=== PATIENT | female | born 1980 | race Caucasian/White ===

== ENCOUNTER 2016-11-13 19:15 | Emergency (ER) | payer MEDICAID ==
[2016-11-13] MEDS ORDERED: NS 1,000 ML IV ONE (19:56)
[2016-11-13 20:23] LABS: ALL NEG? NO
--- NOTE | 2016-11-13 20:26 | EDPRACDOC ---
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 PT IS UNABLE TO GIVE ANY HX. THE PT WAS INITIALLY SENT OUT TO TRIAGE DUE TO NO OPEN ED BEDS. UNFORTUNATELY, SHE PASSED OUT ON THE GROUND WHILE WAITING. Reason for Seeking Treatment: 911 Call Drinking Timeframe: Reports: Days - Alcohol Withdrawal Screening Other Psychiatric Conditions: Positive: Depression (NO TREATMENT) ED Past Medical History - Patient Medical History Cardiac History: Reports: Hypertension Respiratory History: Reports: COPD Psychological History: Reports: Depression (NO TREATMENT) Additional Past Medical History: CHRONIC BACK PAIN Surgical History: Reports: Other ( x 1) - Social Medical History Smoking Status: Heavy tobacco smoker (5 or more cigarettes/day or daily pipe/ cigar) ETOH: Abuse Substance Abuse: None Lives In: Home EDM Review of Systems - Review of Systems ROS Unobtainable: Yes Review of systems cannot be obtained due to the patient's medical condition - Physical Exam Constitutional: ETOH Oriented to: Not Oriented Last recorded Vital Signs: Oxygen Pulse Oxygen Saturation O2 Device Oxygen Flow Rate Fraction of Inspired Oxygen ( FIO2) - HEENT Head: Normal ( normocephalic) Eye Exam: Normal (PERRL, EOMI, Sclera white) Oropharynx: Normal (Pharynx:Moist without exudate,Gums-no swelling) ENT EAC: Normal TMJ: Normal Nose: No Symptoms Reported (septum midline) Neck: Normal (FROM, trachea at midline) - Respiratory/Cardiovascular Respiratory: Normal - CTA (BBS clear to auscultation without adventitious sounds ) Cardiovascular: Normal (RRR without murmur, gallop or rub) - GI Auscultation: Normal (NABS) Palpation: Normal (Soft,No rebound or guarding, non distended) Tenderness: Non tender Winters's Sign: Negative - Musculoskeletal Back: Normal (Non-Tender) Extremities: Normal (Normal tone, Pulses 2+ No cyanosis or edema, FROM) - Integumentary Skin: Normal, Warm, Dry Lymphatics: Normal (no adenopathy) - Neurologic Memory Impaired: Unable to Test Motor Function: Unable to Test Cranial Nerve: Unable to Test Cerebellar: Unable to Test - Results Result Diagrams: 11/13/16 20:25 11/13/16 20:25 - EKG EKG #1 EKG Time: 20:00 -: Yes EKG interpreted by me Rate: bpm: 108 [place]: Normal Rhythm: ST Block: None Hypertrophy: None ST: Normal - Diagnostic Imaging Chest Image interpreted by: Radiologist No acute cardiopulmonary process seen. - Additional Information Additional Information: PT IS NOW AWAKE AND ALERT. I ASKED HER IF SHE WANTED DETOX. SHE NO LONGER DOES. SHE JUST WANTS TO GO HOME AND "SLEEP IT OFF." PT ENCOURAGED TO RETURN IF SHE CHANGES HER MIND. Decision Time to Discharge: 22:11 - Departure Yes I personally saw and evaluated the patient. Disposition: Home Condition: Fair Final Diagnosis: Alcohol intoxication Instructions: Alcohol Intoxication (ED) Education/Counseling Given To: Patient Education/Counseling Given Regarding: Diagnosis, Treatment, Follow Up Referrals: Alex Palomo MD [Primary Care Provider] - One Week
[2016-11-13 20:33] LABS: LEUKOCYTES/URINE TRACE (NEGATIVE); NITRITE/URINE NEG (NEGATIVE); RBC/URINE 0-2 (0-5); URINE OCCULT BLOOD 3+ (NEG/TRACE)
[2016-11-13 20:35] LABS: MDMA* NEG (NEGATIVE); METHAMPHETAMINES NEG (NEGATIVE); OXYCODONE NEG (NEGATIVE)
[2016-11-13 20:46] LABS: AUTOMATED BASOPHIL 1.3 % (0-2); AUTOMATED EOSINOPHIL 0.4 % (0-5); AUTOMATED LYMPH 40.6 % (17-44); AUTOMATED MONOCYTE 3.6 % (3-10); AUTOMATED NEUTROPHIL 54.1 % (45-76); MPV 8.2 fL (7.4-10.4)
[2016-11-13 21:00] LABS: BLOOD UREA NITROGEN 9 MG/DL (7-17); CALCIUM 8.5 MG/DL (8.4-10.2); CALCULATED OSMOLALITY 282 MOs/Kg (270-290); CHLORIDE 104 mEq/L (98-107); GLUCOSE 88 MG/DL (70-99); SODIUM LEVEL 148 mEq/L (137-146); TOTAL PROTEIN 7.3 G/DL (6.3-8.2)
--- NOTE | 2016-11-13 21:16 | DIRPT ---
CLINICAL DATA: Acute onset of cough. Syncope. Initial encounter. EXAM: PORTABLE CHEST 1 VIEW COMPARISON: Chest radiograph performed 05/03/2016 FINDINGS: The lungs are well-aerated and clear. There is no evidence of focal opacification, pleural effusion or pneumothorax. The cardiomediastinal silhouette is within normal limits. No acute osseous abnormalities are seen. IMPRESSION: No acute cardiopulmonary process seen. Electronically Signed By: Domenico Yuen M.D. On: 11/13/2016 21:14
--- NOTE | 2016-11-13 21:24 | DIRPT ---
CLINICAL DATA: Fall. Syncopal episode. Binge drinking for past 3 days. EXAM: CT HEAD WITHOUT CONTRAST CT CERVICAL SPINE WITHOUT CONTRAST TECHNIQUE: Multidetector CT imaging of the head and cervical spine was performed following the standard protocol without intravenous contrast. Multiplanar CT image reconstructions of the cervical spine were also generated. COMPARISON: None. FINDINGS: CT HEAD FINDINGS No evidence of intracranial hemorrhage, brain edema, or other signs of acute infarction. No evidence of intracranial mass lesion or mass effect. No abnormal extraaxial fluid collections identified. Ventricles are normal in size. No skull abnormality identified. Mucosal thickening is seen involving the ethmoid and maxillary sinuses bilaterally, consistent with chronic sinusitis. CT CERVICAL SPINE FINDINGS No evidence of acute fracture, subluxation, or prevertebral soft tissue swelling. Intervertebral disc spaces are maintained. No evidence of facet DJD. No other significant bone abnormality identified. IMPRESSION: No evidence of intracranial abnormality. Chronic sinusitis noted. No evidence of cervical spine fracture or subluxation. Electronically Signed By: Eric Kruger M.D. On: 11/13/2016 21:21
[2016-11-13 21:55] VITALS: BP 133/87; PULSE 100; TEMP 98.3; BMI 42.9
== END 2016-11-13 22:40 | disposition home or self-care (01) ==
LOC: ED 19:15
DX: F10.129 Alcohol abuse with intoxication, unspecified (principal)
CPT/HCPCS: 36415; 70450; 71010; 72125; 80053; 80307; 81001; 81025; 82962; 85025; 93005; 96360; 96361; 99282

== ENCOUNTER 2016-11-14 11:08 | Inpatient (IN) | payer MEDICAID ==
[2016-11-14] MEDS ORDERED: NS 1,000 ML IV ONE (11:45)
[2016-11-14] MEDS ORDERED: SODIUM CHLORIDE 0.9% 10 ML FLUSH FLUSH PRN (11:45)
[2016-11-14] MEDS ORDERED: ONDANSETRON HCL 4 MG/2 ML VIAL IV ONE (11:45)
[2016-11-14] MEDS ORDERED: LORAZEPAM 2 MG/ML VIAL IV ONE ×2 (11:51→12:20)
[2016-11-14 11:52] LABS: ALL NEG? NO
--- NOTE | 2016-11-14 11:57 | EDPRACDOC ---
ED Alcohol/Substance Withdrawl - General Information Information Source: Patient Mode of Arrival: Car - History of Present Illness Onset: today HPI: Pt states she drank a fifth of liquor 2 days ago and now has abd pain, n/v/d, chest pain, cough. Pt states she needs help with the symptoms but doesn't want detox. Denies SI, HI, hallucination. Pt states tntc vomiting, dry heaves, diarrhea in 12 hours. Stopped/Reduced Use For: Days Altered Mental Status For: Reports: None Relevant History: Reports: Alcoholism Current Substance of Use: Reports: Alcohol Circumstances: Reports: Withdrawal Symptoms Severity: Moderate Associated Signs & Symptoms: Reports: Abdominal Pain, Nausea, Vomiting, Diarrhea <Laura Wilson - Last Filed: 11/14/16 12:54> - History of Present Illness HPI: MD NOTE SEEN AND EXAMINED; SEE RECORDS FROM YESTERDAY. PT CAME HERE SHAKING, TACHYCARDIC, AND SWEATING. ALSO PERSISTENT VOMITING. DOES WANT DETOX. WILL CONTACT HOSPITALIST <Michael Lemon - Last Filed: 11/14/16 13:11> - General Information Chief Complaint: Alcohol Withdrawal Stated Complaint: DETOX SHAKING ABD & CP PAIN Time Seen by Provider: 11/14/16 11:43 Home Medications: Home Medications Albuterol Sulfate Nebs [Proventil, Ventolin] 3 ml NEB Q4-6H PRN 11/13/16 Allergies/Adverse Reactions: Allergies Allergy/AdvReac Type Severity Reaction Status Date / Time No Known Allergies Allergy Verified 11/14/16 11:16 ED Past Medical History - History Reviewed Yes Nurses notes reviewed and agree except as marked - Patient Medical History Cardiac History: Reports: Hypertension Respiratory History: Reports: COPD Psychological History: Reports: Depression Systemic History: Denies: Cancer Additional Past Medical History: CHRONIC BACK PAIN Surgical History: Reports: Other ( x 1). Denies: Hysterectomy - Social Medical History Smoking Status: Heavy tobacco smoker (5 or more cigarettes/day or daily pipe/ cigar) Social History: Reports: Marijuana Use ETOH: Abuse Substance Abuse: Illicit Drugs <Laura Wilson - Last Filed: 11/14/16 12:54> EDM Review of Systems - Review of Systems Constitutional: No Symptoms Reported. negative: Fever, Chills, Weakness, Fatigue, Loss of Appetite Ears: No Symptoms Reported. negative: Pain, Hearing Loss, Drainage, Ear Pulling Throat: No Symptoms Reported. negative: Pain, Swelling Nose: No Symptoms Reported. negative: Congestion, Bleeding, Discharge, Injection, Swelling, Deformity, Ecchymosis, Tender, Abrasion, Laceration Mouth: No Symptoms Reported. negative: Pain, Drooling Respiratory: Cough Cardiovascular: Chest Pain Gastrointestinal: Diarrhea, Nausea, Pain, Vomiting Genitourinary: No Symptoms Reported. negative: Dysuria, Hematuria, Frequency, Discharge, Bleeding, Testicular Pain, Neurological: No Symptoms Reported. negative: Headache, Dizziness, Seizure, Numbness, Weakness, Speech Difficulty, Gait Difficulty Musculoskeletal: No Symptoms Reported. negative: Neck, Chestwall, Ribs, Back, Shoulder, Arm, Elbow, Forearm, Wrist, Hand, Pelvis, Hip, Femur, Knee, Leg, Ankle , Foot Integumentary: No Symptoms Reported. negative: Itching, Rash, Bruising, Wound Allergic/Immunologic: No Symptoms Reported. negative: Hives, Itching Hematologic: No Symptoms Reported. negative: Lymphadenopathy, Easy Bruising, Easy Bleeding Psychiatric: No Symptoms Reported. negative: Anxiety, Depression, Hallucinations, Insomnia, Suicidal <Laura Wilson Malini - Last Filed: 11/14/16 12:54> - Physical Exam Constitutional: Alert Oriented to: Time, Person, Place Last recorded Vital Signs: Last Vital Signs Temp 98.5 F 11/14/16 11:13 Pulse 119 11/14/16 11:30 Resp 22 11/14/16 11:30 BP 121/89 11/14/16 11:30 Pulse Ox 100 11/14/16 11:30 Oxygen Pulse Oxygen Saturation 100 O2 Device Room Air Oxygen Flow Rate Fraction of Inspired Oxygen ( FIO2) - HEENT Head: Normal ( normocephalic) Eye Exam: Normal (PERRL, EOMI, Sclera white) Oropharynx: Membranes Dry Tympanic Membrane: Normal ENT EAC: Normal Nose: No Symptoms Reported (septum midline) Neck: Normal (FROM, trachea at midline) - Respiratory/Cardiovascular Respiratory: Normal - CTA (BBS clear to auscultation without adventitious sounds ) Cardiovascular: Tachycardia - GI Auscultation: Normal (NABS) Palpation: Normal (Soft,No rebound or guarding, non distended) Tenderness: Non tender - Musculoskeletal Back: Normal (Non-Tender) Extremities: Normal (Normal tone, Pulses 2+ No cyanosis or edema, FROM) - Integumentary Skin: Normal, Warm, Dry Lymphatics: Normal (no adenopathy) - Neurologic Memory Impaired: Normal Motor Function: Normal (Normal tone, Pulses 2+ No cyanosis or edema, FROM) Cerebellar: Tremor Mood Description: Normal Perception: Normal <Laura Wilson Malini - Last Filed: 11/14/16 12:54> - Physical Exam Last recorded Vital Signs: Last Vital Signs Temp 98.5 F 11/14/16 11:13 Pulse 107 11/14/16 12:42 Resp 18 11/14/16 12:42 BP 227/105 H 11/14/16 12:42 Pulse Ox 94 11/14/16 12:42 Oxygen Pulse Oxygen Saturation 94 O2 Device Room Air Oxygen Flow Rate Fraction of Inspired Oxygen ( FIO2) <Michael Lemon - Last Filed: 11/14/16 13:11> ED Alcohol/Sub/Withdrawal Exam - Neurologic Oriented to: Time, Person, Place Stimuli Response: Verbal Stimuli Memory Impairment: Normal CN: Normal Motor Function Unable to Test or Normal: Normal Cerebellar Function: Tremor Reflexes: Normal Thought: Coherent Affect: Appropriate Perception: Normal Insight: Normal Judgement: Normal <Diane Wilsonmalini Franklin - Last Filed: 11/14/16 12:54> - Differential Diagnosis Alcohol withdraw syndrome, Electrolyte Imbalance, Intoxication Alcohol, Medically stable - Results 11/14/16 12:15 11/14/16 12:15 11/14/16 12:54 Laboratory Results - last 24 hr 11/14/16 11/14/16 11/14/16 11:40 11:40 12:15 WBC RBC Hgb Hct MCV MCH MCHC RDW Plt Count MPV Neut % (Auto) Lymph % (Auto) [place] % (Auto) Eos % (Auto) Baso % (Auto) Absolute Neuts (auto) Absolute Lymphs (auto) Sodium 145 Potassium 3.3 L Chloride 95 L Carbon Dioxide 25 Anion Gap 28 H BUN 10 Creatinine 0.60 Estimated GFR (MDRD) > 60 Glucose 130 H Calculated Osmolality 280 Calcium 9.3 Total Bilirubin 1.3 AST 33 ALT 51 Alkaline Phosphatase 101 Total Protein 8.2 Albumin 4.8 Urine Color Dark yellow Urine Clarity Sl cldy Urine pH 6.0 Ur Specific [place] 1.025 Urine Protein 3+ H Urine Glucose (UA) Trace Urine Ketones 3+ H Urine Occult Blood 3+ H Urine Nitrite Neg Urine Bilirubin Neg Urine Urobilinogen <2.0 Ur Leukocyte Esterase Neg Urine RBC 5-10 H Urine WBC 5-10 H Ur Epithelial Cells 4+ Urine Bacteria 1+ H Urine Mucus Mod H Urine Opiates Screen Neg Ur Oxycodone Screen Neg Urine Methadone Screen Neg Ur Barbiturates Screen Neg Ur Tricyclics Screen Neg Ur Phencyclidine Scrn Neg Ur Amphetamines Screen Neg U Methamphetamines Scrn Neg Urine MDMA Screen Neg U Benzodiazepines Scrn Neg Urine Cocaine Screen Neg Ur THC Screen *positive* H Plasma/Serum Ethyl Alc 0.01 H 11/14/16 12:15 WBC 14.7 H RBC 5.09 Hgb 17.8 H Hct 52.3 H MCV 103 H MCH 35.0 H MCHC 34.0 RDW 17.0 H Plt Count 336 MPV 8.1 Neut % (Auto) 89.0 H Lymph % (Auto) 7.9 L [place] % (Auto) 2.5 L Eos % (Auto) 0.1 Baso % (Auto) 0.5 Absolute Neuts (auto) 13.08 H Absolute Lymphs (auto) 1.03 Sodium Potassium Chloride Carbon Dioxide Anion Gap BUN Creatinine Estimated GFR (MDRD) Glucose Calculated Osmolality Calcium Total Bilirubin AST ALT Alkaline Phosphatase Total Protein Albumin Urine Color Urine Clarity Urine pH Ur Specific [place] Urine Protein Urine Glucose (UA) Urine Ketones Urine Occult Blood Urine Nitrite Urine Bilirubin Urine Urobilinogen Ur Leukocyte Esterase Urine RBC Urine WBC Ur Epithelial Cells Urine Bacteria Urine Mucus Urine Opiates Screen Ur Oxycodone Screen Urine Methadone Screen Ur Barbiturates Screen Ur Tricyclics Screen Ur Phencyclidine Scrn Ur Amphetamines Screen U Methamphetamines Scrn Urine MDMA Screen U Benzodiazepines Scrn Urine Cocaine Screen Ur THC Screen Plasma/Serum Ethyl Alc - Diagnostic Imaging Chest Image interpreted by: Radiologist IMPRESSION: No active disease. <Laura Wilson E - Last Filed: 11/14/16 12:54> - Results 11/14/16 12:15 11/14/16 12:15 WBC 14.7 xk/uL (3.8-10.8) H 11/14/16 12:15 RBC 5.09 xM/uL (4.20-5.40) 11/14/16 12:15 Hgb 17.8 g/dL (12.0-16.0) H 11/14/16 12:15 Hct 52.3 % (36-47) H 11/14/16 12:15 MCV 103 fL (81-99) H 11/14/16 12:15 MCH 35.0 pg (27-32) H 11/14/16 12:15 MCHC 34.0 g/dl (33-36) 11/14/16 12:15 RDW 17.0 % (11.5-14.5) H 11/14/16 12:15 Plt Count 336 xk/uL (130-400) 11/14/16 12:15 MPV 8.1 fL (7.4-10.4) 11/14/16 12:15 Neut % (Auto) 89.0 % (45-76) H 11/14/16 12:15 Lymph % (Auto) 7.9 % (17-44) L 11/14/16 12:15 [place] % (Auto) 2.5 % (3-10) L 11/14/16 12:15 Eos % (Auto) 0.1 % (0-5) 11/14/16 12:15 Baso % (Auto) 0.5 % (0-2) 11/14/16 12:15 Absolute Neuts (auto) 13.08 xk/uL (1.7-8.2) H 11/14/16 12:15 Absolute Lymphs (auto) 1.03 xk/uL (0.65-4.75) 11/14/16 12:15 Sodium 145 mEq/L (137-146) 11/14/16 12:15 Potassium 3.3 mEq/L (3.5-5.1) L 11/14/16 12:15 Chloride 95 mEq/L (98-107) L 11/14/16 12:15 Carbon Dioxide 25 mMOL/L (22-33) 11/14/16 12:15 Anion Gap 28 mEq/L (8-16) H 11/14/16 12:15 BUN 10 MG/DL (7-17) 11/14/16 12:15 Creatinine 0.60 MG/DL (0.52-1.04) 11/14/16 12:15 Estimated GFR (MDRD) > 60 mL/min (>=60) 11/14/16 12:15 Glucose 130 MG/DL (70-99) H 11/14/16 12:15 Calculated Osmolality 280 MOs/Kg (270-290) 11/14/16 12:15 Calcium 9.3 MG/DL (8.4-10.2) 11/14/16 12:15 Total Bilirubin 1.3 MG/DL (0.2-1.3) 11/14/16 12:15 AST 33 IU/L (14-36) 11/14/16 12:15 ALT 51 IU/L (9-52) 11/14/16 12:15 Alkaline Phosphatase 101 IU/L (38-126) 11/14/16 12:15 Total Protein 8.2 G/DL (6.3-8.2) 11/14/16 12:15 Albumin 4.8 G/DL (3.5-5.0) 11/14/16 12:15 Urine Color Dark yellow 11/14/16 11:40 Urine Clarity Sl cldy 11/14/16 11:40 Urine pH 6.0 (5.0-8.0) 11/14/16 11:40 Ur Specific [place] 1.025 (1.003-1.035) 11/14/16 11:40 Urine Protein 3+ (NEG/TRACE) H 11/14/16 11:40 Urine Glucose (UA) Trace (NEGATIVE) 11/14/16 11:40 Urine Ketones 3+ (NEGATIVE) H 11/14/16 11:40 Urine Occult Blood 3+ (NEG/TRACE) H 11/14/16 11:40 Urine Nitrite Neg (NEGATIVE) 11/14/16 11:40 Urine Bilirubin Neg (NEGATIVE) 11/14/16 11:40 Urine Urobilinogen <2.0 MG/DL (0-1) 11/14/16 11:40 Ur Leukocyte Esterase Neg (NEGATIVE) 11/14/16 11:40 Urine RBC 5-10 (0-5) H 11/14/16 11:40 Urine WBC 5-10 (0-5) H 11/14/16 11:40 Ur Epithelial Cells 4+ 11/14/16 11:40 Urine Bacteria 1+ (NEG/FEW) H 11/14/16 11:40 Urine Mucus Mod (NEG/OCC) H 11/14/16 11:40 Urine Opiates Screen Neg (NEGATIVE) 11/14/16 11:40 Ur Oxycodone Screen Neg (NEGATIVE) 11/14/16 11:40 Urine Methadone Screen Neg (NEGATIVE) 11/14/16 11:40 Ur Barbiturates Screen Neg (NEGATIVE) 11/14/16 11:40 Ur Tricyclics Screen Neg (NEGATIVE) 11/14/16 11:40 Ur Phencyclidine Scrn Neg (NEGATIVE) 11/14/16 11:40 Ur Amphetamines Screen Neg (NEGATIVE) 11/14/16 11:40 U Methamphetamines Scrn Neg (NEGATIVE) 11/14/16 11:40 Urine MDMA Screen Neg (NEGATIVE) 11/14/16 11:40 U Benzodiazepines Scrn Neg (NEGATIVE) 11/14/16 11:40 Urine Cocaine Screen Neg (NEGATIVE) 11/14/16 11:40 Ur THC Screen *positive* (NEGATIVE) H 11/14/16 11:40 Plasma/Serum Ethyl Alc 0.01 % (<0.01) H 11/14/16 12:15 Lab Results 11/14/16 11/14/16 11/14/16 12:15 12:15 11:40 WBC 14.7 H RBC 5.09 Hgb 17.8 H Hct 52.3 H MCV 103 H MCH 35.0 H MCHC 34.0 RDW 17.0 H Plt Count 336 MPV 8.1 Neut % (Auto) 89.0 H Lymph % (Auto) 7.9 L [place] % (Auto) 2.5 L Eos % (Auto) 0.1 Baso % (Auto) 0.5 Absolute Neuts (auto) 13.08 H Absolute Lymphs (auto) 1.03 Sodium 145 Potassium 3.3 L Chloride 95 L Carbon Dioxide 25 Anion Gap 28 H BUN 10 Creatinine 0.60 Estimated GFR (MDRD) > 60 Glucose 130 H Calculated Osmolality 280 Calcium 9.3 Total Bilirubin 1.3 AST 33 ALT 51 Alkaline Phosphatase 101 Total Protein 8.2 Albumin 4.8 Urine Color Dark yellow Urine Clarity Sl cldy Urine pH 6.0 Ur Specific [place] 1.025 Urine Protein 3+ H Urine Glucose (UA) Trace Urine Ketones 3+ H Urine Occult Blood 3+ H Urine Nitrite Neg Urine Bilirubin Neg Urine Urobilinogen <2.0 Ur Leukocyte Esterase Neg Urine RBC 5-10 H Urine WBC 5-10 H Ur Epithelial Cells 4+ Urine Bacteria 1+ H Urine Mucus Mod H Urine Opiates Screen Ur Oxycodone Screen Urine Methadone Screen Ur Barbiturates Screen Ur Tricyclics Screen Ur Phencyclidine Scrn Ur Amphetamines Screen U Methamphetamines Scrn Urine MDMA Screen U Benzodiazepines Scrn Urine Cocaine Screen Ur THC Screen Plasma/Serum Ethyl Alc 0.01 H 11/14/16 11:40 WBC RBC Hgb Hct MCV MCH MCHC RDW Plt Count MPV Neut % (Auto) Lymph % (Auto) [place] % (Auto) Eos % (Auto) Baso % (Auto) Absolute Neuts (auto) Absolute Lymphs (auto) Sodium Potassium Chloride Carbon Dioxide Anion Gap BUN Creatinine Estimated GFR (MDRD) Glucose Calculated Osmolality Calcium Total Bilirubin AST ALT Alkaline Phosphatase Total Protein Albumin Urine Color Urine Clarity Urine pH Ur Specific [place] Urine Protein Urine Glucose (UA) Urine Ketones Urine Occult Blood Urine Nitrite Urine Bilirubin Urine Urobilinogen Ur Leukocyte Esterase Urine RBC Urine WBC Ur Epithelial Cells Urine Bacteria Urine Mucus Urine Opiates Screen Neg Ur Oxycodone Screen Neg Urine Methadone Screen Neg Ur Barbiturates Screen Neg Ur Tricyclics Screen Neg Ur Phencyclidine Scrn Neg Ur Amphetamines Screen Neg U Methamphetamines Scrn Neg Urine MDMA Screen Neg U Benzodiazepines Scrn Neg Urine Cocaine Screen Neg Ur THC Screen *positive* H Plasma/Serum Ethyl Alc <Michael Lemon - Last Filed: 11/14/16 13:11> <Laura Wilson - Last Filed: 11/14/16 12:54> - Departure Yes I personally saw and evaluated the patient. Disposition: Admit IP To This Hospital Decision to Admit Time: 13:10 (GARRETT) Decision to admit date: 11/14/16 Decision to admit: from ED <Michael Lemon - Last Filed: 11/14/16 13:11> - Departure Condition: Good Final Diagnosis: Alcohol withdrawal delirium Instructions: Abuse of Alcohol (ED), Alcohol Withdrawal (ED)
[2016-11-14 11:59] LABS: MDMA* NEG (NEGATIVE); METHAMPHETAMINES NEG (NEGATIVE); OXYCODONE NEG (NEGATIVE)
[2016-11-14 12:00] LABS: LEUKOCYTES/URINE NEG (NEGATIVE); NITRITE/URINE NEG (NEGATIVE); URINE OCCULT BLOOD 3+ (NEG/TRACE)
[2016-11-14] MEDS ORDERED: NS 1,000 ML IV SCH (12:00)
[2016-11-14] MEDS ORDERED: CHLORDIAZEPOXIDE 25 MG CAP PO SCH (12:00)
[2016-11-14] MEDS: CHLORDIAZEPOXIDE 25 MG CAP PO SCH ×2 (12:24→17:13)
[2016-11-14 12:29] LABS: AUTOMATED BASOPHIL 0.5 % (0-2); AUTOMATED EOSINOPHIL 0.1 % (0-5); AUTOMATED LYMPH 7.9 % (17-44); AUTOMATED MONOCYTE 2.5 % (3-10); MPV 8.1 fL (7.4-10.4)
--- NOTE | 2016-11-14 12:41 | DIRPT ---
CLINICAL DATA: Chest pain. Patient in detox. EXAM: PORTABLE CHEST 1 VIEW COMPARISON: 11/13/2016 FINDINGS: Lungs are adequately inflated without consolidation, effusion or pneumothorax. Cardiomediastinal silhouette, bones and soft tissues are within normal. IMPRESSION: No active disease. Electronically Signed By: Brandin Richards M.D. On: 11/14/2016 12:38
[2016-11-14 12:44] LABS: BLOOD UREA NITROGEN 10 MG/DL (7-17); CALCIUM 9.3 MG/DL (8.4-10.2); CALCULATED OSMOLALITY 280 MOs/Kg (270-290); CHLORIDE 95 mEq/L (98-107); ETOH-MGDL 13 mg/dL; GLUCOSE 130 MG/DL (70-99); SODIUM LEVEL 145 mEq/L (137-146); TOTAL PROTEIN 8.2 G/DL (6.3-8.2)
[2016-11-14] MEDS ORDERED: BENZONATATE 100 MG PERLES PO PRN (13:49)
[2016-11-14] MEDS ORDERED: PROMETHAZINE 25 MG/ML VIAL IV PRN (13:49)
[2016-11-14] MEDS ORDERED: ACETAMINOPHEN 325 MG SUPP PR PRN (13:49)
[2016-11-14] MEDS ORDERED: ONDANSETRON HCL 4 MG/2 ML VIAL IV PRN (13:49)
[2016-11-14] MEDS ORDERED: LORAZEPAM 1 MG TAB PO PRN ×3 (13:49)
[2016-11-14] MEDS ORDERED: LORAZEPAM 2 MG/ML VIAL IV PRN ×3 (13:49)
[2016-11-14] MEDS ORDERED: SENNA CONCENTRATE TAB PO PRN (13:49)
[2016-11-14] MEDS ORDERED: BISACODYL 10 MG SUPP PR PRN (13:49)
[2016-11-14] MEDS ORDERED: VITAMINS,PRENATAL TABLET PO ONE (13:49)
[2016-11-14] MEDS ORDERED: ACETAMINOPHEN 325 MG/TAB TABLET PO PRN (13:49)
[2016-11-14] MEDS ORDERED: THIAMINE 100 MG TAB PO ONE (13:49)
[2016-11-14] MEDS ORDERED: TUSSIONEX 5 ML ORAL SYRINGE PO PRN (13:49)
[2016-11-14] MEDS ORDERED: DICYCLOMINE 20 MG TAB PO PRN (13:49)
[2016-11-14] MEDS ORDERED: Alcohol Withdrawal Scale Orders XX SCH (14:00)
[2016-11-14] MEDS ORDERED: Albuterol/Ipratropium Neb 3 ML NEB NEB PRN (14:02)
[2016-11-14] MEDS ORDERED: ALBUTEROL 0.083% 3 ML NEB NEB PRN ×2 (14:02→14:19)
[2016-11-14] MEDS ORDERED: NICOTINE 21 MG PATCH TOP SCH (15:00)
[2016-11-14] MEDS ORDERED: SUMATRIPTAN SUCCINATE 6 MG/0.5 ML VIAL SQ PRN (15:20)
[2016-11-14] MEDS ORDERED: SUMATRIPTAN SUCCINATE 6 MG/0.5 ML VIAL SQ ONE (15:20)
[2016-11-14] MEDS ORDERED: NAPROXEN 500 MG EC TAB PO ONE (15:20)
--- NOTE | 2016-11-14 15:22 | HISTPHYS ---
- Chief Complaint Nausea, vomiting, diarrhea, shaking, palpitations, sweating, chest pain, cough and I want to quit drinking alcohol and willing to stay here. - History of Present Illness Primary care provider is Dr. Palomo Patient is a 36-year-old single obese white female who can drink up to a 5th of conde vodka in 5 hours. She claims to only do this occasionally but then states she wants to go through detox and comes into the emergency room with tremors and tachycardia. She was noted to be diaphoretic with persistent vomiting in the emergency room today. She also complains of a severe right frontal headache which can last for days. She calls it a migraine. She smokes 15-20 cigarettes a day. She denies any suicidal or homicidal ideations. - Medical History Cardiac History: Reports: No Significant History Respiratory History: Reports: Emphysema (Smokes 15-20 cigarettes a day) GI/ History: Reports: [facility] GI Yes/No Other (See above) Musculoskeletal History: Reports: No Significant History Systemic History: Reports: No Significant History Neurological History: Reports: Migraine Psychological History: Reports: Alcoholism - Surgical History Reports: Other ( x 1). Denies: Hysterectomy - Medictions/Allergies Allergies No Known Allergies Allergy (Verified 11/14/16 11:16) Current Medication List: Reviewed Home Medications Albuterol Sulfate Nebs [Proventil, Ventolin] 3 ml NEB Q4-6H PRN 11/13/16 - Family History Reports: Hypertension, Diabetes, Cancer (Mother of metastatic lung cancer to the bone) - Social History Travel Outside of [place] in the Last 3 Months?: No Lives: Alone Smoking Status: Heavy tobacco smoker (5 or more cigarettes/day or daily pipe/ cigar) Social History: Reports: Alcohol Use, Marijuana Use (Urine drug screen positive for THC) - Review of Systems Constitutional: Diaphoresis, Weakness Eyes: No Symptoms Reported (No blurry vision, visual changes, eye pain, or eye redness.) Ears: No Symptoms Reported (No ear pain or discharge) Nose: No Symptoms Reported (No nasal discharge/congestion or bleeding) Mouth: No Symptoms Reported (No oropharyngeal lesions or erythema) Throat/Neck: No Symptoms Reported (No throat pain or swelling.No oropharyngeal lesions or erythema.) Respiratory: No Symptoms Reported (No cough, wheezing, or shortness of breath.) Cardiovascular: No Symptoms Reported (No chest pain or palpitations.) Gastrointestinal: Nausea, Vomiting, Abdominal Pain, Diarrhea Genitourinary: No Symptoms Reported (No dysuria or hematuria.) Neurological: Headache (Right frontal headache) Integumentary: No Symptoms Reported (no rashes or lesions) Allergic/Immunologic: No Symptoms Reported (no rashes or lesions) Hematologic: No Symptoms Reported (No chronic anemia, bleeding, or easy bruising.), Other (Lymphatics- no lymph node swelling or pain.) Endocrine: No Symptoms Reported (No thyroid issues, polyuria, or polydipsia.) Psychiatric: No Symptoms Reported (Fully oriented, with normal and appropriate affect.) - Physical Exam Vital Signs: Initial Vitals Temperature 98.5 F 11/14/16 11:13 Pulse Rate 124 H 11/14/16 11:13 Respiratory Rate 22 11/14/16 11:13 Blood Pressure 163/106 H 11/14/16 11:13 Pulse Oxygen Saturation 97 11/14/16 11:13 Constitutional: Alert, Agitated Oriented to: Time, Person, Place - HEENT Head: Normal (normocephalic, atraumatic.), Other (No cervical lymphadenopathy. No supraclavicular lymphadenopathy. Neck: No palpable mass, supple , trachea midline.) Eye: Normal (pupils equal, reactive to light, and round; EOMI, Sclera white) Oropharynx: Normal (Pharynx: Moist without exudate,Gums-no swelling, No oropharyngeal lesions or erythema, Mucous membranes are dry.) ENT EAC: Normal TMJ: Normal Nose: No Symptoms Reported (septum midline, Nares patent, without discharge or bleeding.) Respiratory: Normal - CTA (Clear to auscultation bilaterally. No wheezing, rales , rhonchi. Chest wall movements are symmetric. No use of accessory muscles to breathe.), Diminished. negative: Rales, Rhonchi, Wheezes Cardiovascular: Tachycardia. negative: Irregular, Diastolic murmur, Systolic murmur - GI Auscultation: Normal (normal active sounds) Palpation: Normal (Soft,non distended,nontender. No hepatosplenomegaly.) Tenderness: Non tender (No rebound or guarding) Winters's Sign: Negative - Exam Deferred: Yes - Musculoskeletal Back: Normal (Non-Tender) Extremities: Normal (Normal tone, DP pulses 2+ bilaterally, No cyanosis or edema bilaterally, FROM bilaterally.) Spine: non-tender - Integumentary Skin: Normal (Clean, dry, and intact. No rashes. No lesions.) Lymphatics: Normal (No cervical lymphadenopathy. No supraclavicular lymphadenopathy.) - Neurologic Memory Impaired: Normal Motor Function: Normal (Motor 5/5 throughout.Normal tone, Pulses 2+ No cyanosis or edema, FROM) Cranial Nerve: Normal (CN II-XII intact sensation, strength 5/5) Cerebellar: Past-Pointing, Tremor Mood Description: Anxious, Agitated Perception: negative: Auditory Hallucinations, Visual Hallucinations (Denies hallucinosis) - Focused CV Perfusion Exam Vital Signs: Last Vital Signs Temp 98.4 F 11/14/16 14:48 Pulse 110 11/14/16 14:48 Resp 20 11/14/16 14:48 BP 184/111 H 11/14/16 14:48 Pulse Ox 98 11/14/16 14:48 - Lab Results 11/14/16 12:15 11/14/16 12:15 Laboratory Results - last 24 hr 11/14/16 11/14/16 11/14/16 11:40 11:40 12:15 WBC RBC Hgb Hct MCV MCH MCHC RDW Plt Count MPV Neut % (Auto) Lymph % (Auto) [place] % (Auto) Eos % (Auto) Baso % (Auto) Absolute Neuts (auto) Absolute Lymphs (auto) Sodium 145 Potassium 3.3 L Chloride 95 L Carbon Dioxide 25 Anion Gap 28 H BUN 10 Creatinine 0.60 Estimated GFR (MDRD) > 60 Glucose 130 H Calculated Osmolality 280 Calcium 9.3 Phosphorus Magnesium Total Bilirubin 1.3 AST 33 ALT 51 Alkaline Phosphatase 101 Total Protein 8.2 Albumin 4.8 TSH Urine Color Dark yellow Urine Clarity Sl cldy Urine pH 6.0 Ur Specific [place] 1.025 Urine Protein 3+ H Urine Glucose (UA) Trace Urine Ketones 3+ H Urine Occult Blood 3+ H Urine Nitrite Neg Urine Bilirubin Neg Urine Urobilinogen <2.0 Ur Leukocyte Esterase Neg Urine RBC 5-10 H Urine WBC 5-10 H Ur Epithelial Cells 4+ Urine Bacteria 1+ H Urine Mucus Mod H Urine Opiates Screen Neg Ur Oxycodone Screen Neg Urine Methadone Screen Neg Ur Barbiturates Screen Neg Ur Tricyclics Screen Neg Ur Phencyclidine Scrn Neg Ur Amphetamines Screen Neg U Methamphetamines Scrn Neg Urine MDMA Screen Neg U Benzodiazepines Scrn Neg Urine Cocaine Screen Neg Ur THC Screen *positive* H Plasma/Serum Ethyl Alc 0.01 H 11/14/16 11/14/16 11/14/16 12:15 12:15 12:15 WBC 14.7 H RBC 5.09 Hgb 17.8 H Hct 52.3 H MCV 103 H MCH 35.0 H MCHC 34.0 RDW 17.0 H Plt Count 336 MPV 8.1 Neut % (Auto) 89.0 H Lymph % (Auto) 7.9 L [place] % (Auto) 2.5 L Eos % (Auto) 0.1 Baso % (Auto) 0.5 Absolute Neuts (auto) 13.08 H Absolute Lymphs (auto) 1.03 Sodium Potassium Chloride Carbon Dioxide Anion Gap BUN Creatinine Estimated GFR (MDRD) Glucose Calculated Osmolality Calcium Phosphorus Magnesium 1.30 L Total Bilirubin AST ALT Alkaline Phosphatase Total Protein Albumin TSH 0.48 L Urine Color Urine Clarity Urine pH Ur Specific [place] Urine Protein Urine Glucose (UA) Urine Ketones Urine Occult Blood Urine Nitrite Urine Bilirubin Urine Urobilinogen Ur Leukocyte Esterase Urine RBC Urine WBC Ur Epithelial Cells Urine Bacteria Urine Mucus Urine Opiates Screen Ur Oxycodone Screen Urine Methadone Screen Ur Barbiturates Screen Ur Tricyclics Screen Ur Phencyclidine Scrn Ur Amphetamines Screen U Methamphetamines Scrn Urine MDMA Screen U Benzodiazepines Scrn Urine Cocaine Screen Ur THC Screen Plasma/Serum Ethyl Alc 11/14/16 15:55 WBC RBC Hgb Hct MCV MCH MCHC RDW Plt Count MPV Neut % (Auto) Lymph % (Auto) [place] % (Auto) Eos % (Auto) Baso % (Auto) Absolute Neuts (auto) Absolute Lymphs (auto) Sodium Potassium Chloride Carbon Dioxide Anion Gap BUN Creatinine Estimated GFR (MDRD) Glucose Calculated Osmolality Calcium Phosphorus 1.8 L Magnesium Total Bilirubin AST ALT Alkaline Phosphatase Total Protein Albumin TSH Urine Color Urine Clarity Urine pH Ur Specific [place] Urine Protein Urine Glucose (UA) Urine Ketones Urine Occult Blood Urine Nitrite Urine Bilirubin Urine Urobilinogen Ur Leukocyte Esterase Urine RBC Urine WBC Ur Epithelial Cells Urine Bacteria Urine Mucus Urine Opiates Screen Ur Oxycodone Screen Urine Methadone Screen Ur Barbiturates Screen Ur Tricyclics Screen Ur Phencyclidine Scrn Ur Amphetamines Screen U Methamphetamines Scrn Urine MDMA Screen U Benzodiazepines Scrn Urine Cocaine Screen Ur THC Screen Plasma/Serum Ethyl Alc - Assessment (1) Alcohol withdrawal delirium F10.231 - ALCOHOL DEPENDENCE WITH WITHDRAWAL DELIRIUM Acute Present on Admission: Yes Started detox protocol hand the intensive care unit monitoring have patient closely for agitated behavior and more signs withdrawal syndrome. She has a significant abuse history. (2) Substance abuse F19.10 - OTHER PSYCHOACTIVE SUBSTANCE ABUSE, UNCOMPLICATED Chronic Present on Admission: Yes Urine drug screen positive for marijuana. 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 (4) Tobacco abuse Z72.0 - TOBACCO USE Chronic Present on Admission: Yes Chronic tobacco abuse warrants discontinuation of this and all of the substances which she abuses. (5) Alcohol abuse F10.10 - ALCOHOL ABUSE, UNCOMPLICATED Chronic Present on Admission: Yes She will definitely need to go into AA post detoxification. - Plan Due to the presence of and / or the risk of deterioration, my attendance to this patient required critical care time, including assessment/reassessment, documentation, ordering and interpreting ancillary studies, discussion with staff and consultants,patient and family, and excludes time spent on separately billable procedures. This individual is critically ill and in danger of dying. Case Care Discussed with: Patient, Nursing Staff Total Time: CRITICAL CARE TIME SPENT 1 HOUR 25 MINUTES Critical Care: Yes Code: 291 (292)
[2016-11-14] MEDS ORDERED: Magnesium Sulfate 2 gm/D5W 2 GM/50 ML RTU IV ONE (15:28)
[2016-11-14] MEDS: NS/KCl 20 mEq 1,000 ML IV SCH (15:54)
[2016-11-14] MEDS ORDERED: Vaccine Screening Complete SCH (16:00)
[2016-11-14 16:19] LABS: ETOH-MGDL < 10 mg/dL
[2016-11-14] MEDS: METOPROLOL TARTRATE 25 MG TAB PO SCH (16:32)
[2016-11-14] MEDS: BuPROPion 150 MG SR TAB PO SCH (16:32)
[2016-11-14] MEDS: PANTOPRAZOLE 40 MG TAB PO SCH (17:14)
[2016-11-14] MEDS ORDERED: ENOXAPARIN 60 MG/0.6 ML PFS SQ SCH (18:00)
[2016-11-14] MEDS ORDERED: hydrALAZINE 20 MG/ML VIAL IV PRN (18:13)
[2016-11-14] MEDS ORDERED: hydrALAZINE 20 MG/ML VIAL ONE (18:19)
[2016-11-14] MEDS ORDERED: NS IV ONE (20:47)
[2016-11-14] MEDS ORDERED: POTASSIUM PHOSPHATE IV ONE (20:47)
[2016-11-14] MEDS ORDERED: CHLORHEXIDINE (HIBICLENS) 4 OZ BOTTLE TOP SCH (21:00)
[2016-11-14 21:27] LABS: LEUKOCYTES/URINE NEG (NEGATIVE); NITRITE/URINE NEG (NEGATIVE); URINE OCCULT BLOOD 2+ (NEG/TRACE); WBC/URINE 0-2 (0-5)
[2016-11-14] MEDS: POTASSIUM CHLORIDE 20 MEQ TAB PO SCH (21:45)
[2016-11-15] MEDS: NS/KCl 20 mEq 1,000 ML IV SCH ×4 (00:02→10:05)
[2016-11-15] MEDS: POTASSIUM CHLORIDE 20 MEQ TAB PO SCH (00:12)
[2016-11-15] MEDS: CHLORDIAZEPOXIDE 25 MG CAP PO SCH ×2 (00:13→05:30)
[2016-11-15] MEDS: METOPROLOL TARTRATE 25 MG TAB PO SCH ×3 (00:13→11:28)
[2016-11-15] MEDS: PANTOPRAZOLE 40 MG TAB PO SCH (05:30)
[2016-11-15 05:31] LABS: MPV 8.4 fL (7.4-10.4)
[2016-11-15 05:44] LABS: BLOOD UREA NITROGEN 10 MG/DL (7-17); CALCIUM 7.8 MG/DL (8.4-10.2); CALCULATED OSMOLALITY 266 MOs/Kg (270-290); CHLORIDE 100 mEq/L (98-107); GLUCOSE 74 MG/DL (70-99); SODIUM LEVEL 139 mEq/L (137-146)
[2016-11-15 06:51] VITALS: BMI 43.0
[2016-11-15 07:24] VITALS: TEMP 98
[2016-11-15] MEDS ORDERED: PNEUMOCOCCAL 0.5 ML VIAL IM ONE (08:00)
[2016-11-15] MEDS ORDERED: FLU VACCINE (Afluria) 0.5 ML DOSE IM ONE (08:00)
[2016-11-15] MEDS: BuPROPion 150 MG SR TAB PO SCH (08:26)
--- NOTE | 2016-11-15 11:57 | PCM.DCS92 ---
- Final/Secondary Discharge Diagnosis (1) Alcohol withdrawal delirium Acute F10.231 - ALCOHOL DEPENDENCE WITH WITHDRAWAL DELIRIUM Present on Admission: Yes Comment: Started detox protocol hand the intensive care unit monitoring have patient closely for agitated behavior and more signs withdrawal syndrome. She has a significant abuse history. (2) Substance abuse Chronic F19.10 - OTHER PSYCHOACTIVE SUBSTANCE ABUSE, UNCOMPLICATED Present on Admission: Yes Comment: Urine drug screen positive for marijuana. (3) COPD with emphysema Chronic J43.9 - EMPHYSEMA, UNSPECIFIED Present on Admission: Yes centrilobular J43.2 - Centrilobular emphysema Comment: Evidence of emphysema noted on chest x-ray and history of asthma. (4) Tobacco abuse Chronic Z72.0 - TOBACCO USE Present on Admission: Yes Comment: Chronic tobacco abuse warrants discontinuation of this and all of the substances which she abuses. (5) Alcohol abuse Chronic F10.10 - ALCOHOL ABUSE, UNCOMPLICATED Present on Admission: Yes Comment: She will definitely need to go into AA post detoxification. Discharge Disposition: Home Discharge Condition: Good Cognitive Discharge Status: Unimpaired Fuctional Discharge Status: Independent Physician Follow up/Referrals: Alex Palomo MD [Primary Care Provider] - One Week New Prescriptions: Albuterol Sulfate Nebs [Proventil, Ventolin] 3 ml NEB Q4-6H PRN #120 nebu PRN Reason: Shortness Of Breath Lorazepam [Ativan] 1 mg PO Q4H PRN #14 tablet PRN Reason: Withdrawal Score Below 10 Thiamine [Thiamine, Vitamin B-1] 100 mg PO DAILY@1200 #100 tablet Vitamins, [ Vitamin] 1 tab PO DAILY@1200 #100 tablet Discharge Home Medication List Albuterol Sulfate Nebs [Proventil, Ventolin] 3 ml NEB Q4-6H PRN #120 nebu [Rx Last Taken Unknown] Lorazepam [Ativan] 1 mg PO Q4H PRN #14 tablet 11/15/16 [Rx Last Taken Unknown] Thiamine [Thiamine, Vitamin B-1] 100 mg PO DAILY@1200 #100 tablet 11/15/16 [Rx Last Taken Unknown] Vitamins, [ Vitamin] 1 tab PO DAILY@1200 #100 tablet 11/15/16 [ Rx Last Taken Unknown] 11/15/16 05:05 11/15/16 05:05 Laboratory Results - last 24 hr 11/14/16 11/14/16 11/14/16 12:15 12:15 12:15 WBC 14.7 H RBC 5.09 Hgb 17.8 H Hct 52.3 H MCV 103 H MCH 35.0 H MCHC 34.0 RDW 17.0 H Plt Count 336 MPV 8.1 Neut % (Auto) 89.0 H Lymph % (Auto) 7.9 L [place] % (Auto) 2.5 L Eos % (Auto) 0.1 Baso % (Auto) 0.5 Absolute Neuts (auto) 13.08 H Absolute Lymphs (auto) 1.03 Sodium 145 Potassium 3.3 L Chloride 95 L Carbon Dioxide 25 Anion Gap 28 H BUN 10 Creatinine 0.60 Estimated GFR (MDRD) > 60 Glucose 130 H Calculated Osmolality 280 Calcium 9.3 Phosphorus Magnesium 1.30 L Total Bilirubin 1.3 AST 33 ALT 51 Alkaline Phosphatase 101 Total Protein 8.2 Albumin 4.8 TSH Urine Color Urine Clarity Urine pH Ur Specific [place] Urine Protein Urine Glucose (UA) Urine Ketones Urine Occult Blood Urine Nitrite Urine Bilirubin Urine Urobilinogen Ur Leukocyte Esterase Urine RBC Urine WBC Ur Epithelial Cells Urine Bacteria Urine Mucus Plasma/Serum Ethyl Alc 0.01 H 11/14/16 11/14/16 11/14/16 12:15 15:55 21:16 WBC RBC Hgb Hct MCV MCH MCHC RDW Plt Count MPV Neut % (Auto) Lymph % (Auto) [place] % (Auto) Eos % (Auto) Baso % (Auto) Absolute Neuts (auto) Absolute Lymphs (auto) Sodium Potassium Chloride Carbon Dioxide Anion Gap BUN Creatinine Estimated GFR (MDRD) Glucose Calculated Osmolality Calcium Phosphorus 1.8 L Magnesium Total Bilirubin AST ALT Alkaline Phosphatase Total Protein Albumin TSH 0.48 L Urine Color [place] Urine Clarity Clear Urine pH 7.0 Ur Specific [place] 1.005 Urine Protein 3+ H Urine Glucose (UA) Trace Urine Ketones 3+ H Urine Occult Blood 2+ H Urine Nitrite Neg Urine Bilirubin Neg Urine Urobilinogen 2 H Ur Leukocyte Esterase Neg Urine RBC 5-10 H Urine WBC 0-2 Ur Epithelial Cells 2+ Urine Bacteria Few Urine Mucus Occ Plasma/Serum Ethyl Alc 11/15/16 11/15/16 05:05 05:05 WBC 7.4 RBC 3.99 L Hgb 14.0 D Hct 42.2 MCV 106 H MCH 35.1 H MCHC 33.2 RDW 17.1 H Plt Count 198 MPV 8.4 Neut % (Auto) Lymph % (Auto) [place] % (Auto) Eos % (Auto) Baso % (Auto) Absolute Neuts (auto) Absolute Lymphs (auto) Sodium 139 Potassium 4.1 Chloride 100 Carbon Dioxide 30 Anion Gap 13 BUN 10 Creatinine 0.60 Estimated GFR (MDRD) > 60 Glucose 74 Calculated Osmolality 266 L Calcium 7.8 L Phosphorus Magnesium 2.10 Total Bilirubin AST ALT Alkaline Phosphatase Total Protein Albumin TSH Urine Color Urine Clarity Urine pH Ur Specific [place] Urine Protein Urine Glucose (UA) Urine Ketones Urine Occult Blood Urine Nitrite Urine Bilirubin Urine Urobilinogen Ur Leukocyte Esterase Urine RBC Urine WBC Ur Epithelial Cells Urine Bacteria Urine Mucus Plasma/Serum Ethyl Alc O2 Device: Nasal Cannula Diet at Discharge: Regular Activity: As Tolerated Discontinue use of:: Alcohol, All Illegal Substances, All Types of Tobacco - DC Summary Notes HPI/Notes: Primary care provider is Dr. Palomo Patient is a 36-year-old single obese white female who can drink up to a 5th of conde vodka in 5 hours. She claims to only do this occasionally but then states she wants to go through detox and comes into the emergency room with tremors and tachycardia. She was noted to be diaphoretic with persistent vomiting in the emergency room today. She also complains of a severe right frontal headache which can last for days. She calls it a migraine. She smokes 15-20 cigarettes a day. She denies any suicidal or homicidal ideations. Hospital Course Note:: Discharge summary on patient named RICKEY PUTNAM [place] [facility]16 by Ozzy Blancas MD. Date of discharge is 11/15/2016. Patient was admitted with what appeared to be alcohol withdrawal but was determined to be more related to polysubstance abuse. She mentioned that she could drink a 5th of vodka within 5 hours but claimed only do this once a week. She indicated that she was interested in going to alcohol rehab outpatient in [facility] and already is aware of the location. She told me that she would go there for the detoxification protocol the use. She has no evidence of tremor or alcohol withdrawal at this point in time and is anxious to leave. I reinforced upon her the importance of cessation alcohol tobacco and substance abuse. She indicated she would quit drinking alcohol but not cigarettes. Additionally during hospitalization during her sleep her O2 sats would drop to 86% and appears to have obstructive sleep apnea. I feel she would benefit from an out patient sleep study and follow up with Dr. Early for this test, needs to be arranged. Patient is so instructed. For the time being will arrange for home O2 nocturnally. CC: Dr. Palomo Total Time: 41 min Code: 35481 (>30min.) - Physical Exam Vital Signs: Last Vital Signs Temp 98 F 11/15/16 07:00 Pulse 68 11/15/16 11:30 Resp 20 11/15/16 10:24 BP 148/96 11/15/16 11:28 Pulse Ox 92 11/15/16 11:00 Oxygen Pulse Oxygen Saturation 92 O2 Device Nasal Cannula Oxygen Flow Rate 2 Fraction of Inspired Oxygen ( FIO2) Constitutional: Alert, Agitated Oriented to: Time, Person, Place - HEENT Head: Normal (normocephalic, atraumatic.), Other (No cervical lymphadenopathy. No supraclavicular lymphadenopathy. Neck: No palpable mass, supple , trachea midline.) Eye: Normal (pupils equal, reactive to light, and round; EOMI, Sclera white) Oropharynx: Normal (Pharynx: Moist without exudate,Gums-no swelling, No oropharyngeal lesions or erythema, Mucous membranes are dry.) ENT EAC: Normal TMJ: Normal Nose: No Symptoms Reported (septum midline, Nares patent, without discharge or bleeding.) - Respiratory/Cardiovascular Respiratory: Normal - CTA (Clear to auscultation bilaterally. No wheezing, rales , rhonchi. Chest wall movements are symmetric. No use of accessory muscles to breathe.), Diminished. negative: Rales, Rhonchi, Wheezes Cardiovascular: Tachycardia. negative: Irregular, Diastolic murmur, Systolic murmur - GI Auscultation: Normal (normal active sounds) Palpation: Normal (Soft,non distended,nontender. No hepatosplenomegaly.) Tenderness: Non tender (No rebound or guarding) Winters's Sign: Negative - Musculoskeletal Back: Normal (Non-Tender) Extremities: Normal (Normal tone, DP pulses 2+ bilaterally, No cyanosis or edema bilaterally, FROM bilaterally.) - Integumentary Skin: Normal (Clean, dry, and intact. No rashes. No lesions.) Lymphatics: Normal (No cervical lymphadenopathy. No supraclavicular lymphadenopathy.) - Neurologic Memory Impaired: Normal Motor Function: Normal (Motor 5/5 throughout.Normal tone, Pulses 2+ No cyanosis or edema, FROM) Cranial Nerve: Normal (CN II-XII intact sensation, strength 5/5) Cerebellar: Normal (Babinski: toes downgoing bilaterally. Intact Finger to nose. Sensory grossly intact to light touch. Intact rapid alternating movements bilaterally. No pronator drift.) Mood Description: Normal (Fully oriented. Normal and appropriate affect.) Thought: Coherent Perception: negative: Auditory Hallucinations, Visual Hallucinations (Denies hallucinosis)
[2016-11-15] MEDS ORDERED: CHLORDIAZEPOXIDE 25 MG CAP PO SCH (12:00)
[2016-11-15] MEDS ORDERED: VITAMINS,PRENATAL TABLET PO SCH (12:00)
[2016-11-15] MEDS ORDERED: THIAMINE 100 MG TAB PO SCH (12:00)
[2016-11-15 12:04] VITALS: BP 112/93; PULSE 79
== END 2016-11-15 13:00 | disposition home or self-care (01) | DRG 897 ==
LOC: ED 11:08 → ICU 13:49
PROVIDERS: ADMIT Internal Medicine; ATTEND Internal Medicine
DX: F10.231 Alcohol dependence with withdrawal delirium (principal); Z68.41 Body mass index [BMI] 40.0-44.9, adult; J43.2 Centrilobular emphysema; F19.10 Other psychoactive substance abuse, uncomplicated; Z71.6 Tobacco abuse counseling; F17.210 Nicotine dependence, cigarettes, uncomplicated; J44.9 Chronic obstructive pulmonary disease, unspecified; G47.33 Obstructive sleep apnea (adult) (pediatric); R51 Headache; Z79.899 Other long term (current) drug therapy; E66.9 Obesity, unspecified; J45.909 Unspecified asthma, uncomplicated; R00.0 Tachycardia, unspecified; Z23 Encounter for immunization
CPT/HCPCS: 36415; 71010; 80048; 80053; 80307; 81001; 83735; 84100; 84443; 85025; 85027; 86592; 87086; 87641; 90471; 90656; 90732; 93005; 96361; 96372; 96374; 96375; 96376; 99284; 99406; G0237; J0360; J1650; J2060; J2405; J3030; J3475; J3490; J7040